=== PATIENT | female | born 1970 | race Two or more races ===

== ENCOUNTER 2023-02-23 09:59 | Emergency (ER) | payer OTHER ==
[~2023-02-23] VITALS: Ht 167.6 cm; Wt 107.7 kg
[2023-02-23 11:02] LABS: Basophils # (auto) 0 10 ^3/uL (0-0.2); Basophils % (auto) 0.5 % (0.0-2.0); Eosinophils # (auto) 0 10 ^3/uL (0-0.8); Eosinophils % (auto) 1.1 % (0.0-7.0); Hematocrit 41.1 % (36.0-46.0); Lymphocytes # (auto) 1.5 10 ^3/uL (0.4-5.4); Lymphocytes % (auto) 32.7 % (10.0-50.0); Mean Corpuscular Hemoglobin 32.2 pg (28.0-32.0); Mean Corpuscular Volume 94.7 fL (80.0-100.0); Monocytes # (auto) 0.5 10 ^3/uL (0-1.3); Neutrophils # (auto) 2.5 10 ^3/uL (1.6-8.6); Neutrophils % (auto) 55.7 % (37.0-80.0); Nucleated Red Blood Cells % 0.2 %; Red Blood Cells 4.34 10^6/uL (4.0-5.20); Red Cell Distribution Width 12.7 % (11.8-14.3); White Blood Cell 4.5 10^3/uL (4.4-10.8)
[2023-02-23 11:04] LABS: Albumin 3.8 g/dL (3.4-5.0); Calcium 8.9 mg/dL (8.5-10.1); Magnesium 2.1 mg/dL (1.6-2.6); Potassium 3.5 mmol/L (3.5-5.1)
[2023-02-23 11:08] LABS: BUN/Creatinine Ratio 9.5 (10.0-20.0); Bilirubin, Total 0.6 mg/dL (0.2-1.0); Total Protein 7.1 g/dL (6.4-8.2)
[2023-02-23 12:30] LABS: Urine Bacteria NONE SEEN /hpf (None Seen); Urine Blood Negative /uL (Negative); Urine Mucus MANY (None Seen); Urine WBC 2 /hpf (0 - 5)
[2023-02-23] MEDS ORDERED: PRED20TA2 PO (15:03)
[2023-02-23] MEDS ORDERED: AZIT-81 PO (15:03)
[2023-02-23 15:49] VITALS: BP 118/79
== END 2023-02-23 15:54 | disposition home or self-care (01) ==
LOC: ER 09:59
DX: K52.9 Noninfective gastroenteritis and colitis, unspecified (principal); Z88.1 Allergy status to other antibiotic agents; Z88.0 Allergy status to penicillin; Z88.8 Allergy status to other drugs, medicaments and biological substances
CPT/HCPCS: 36415; 74176; 80053; 81001; 82150; 83690; 83735; 84484; 85025; 85048; 87045; 87177; 87427; 87493; 93005

== ENCOUNTER 2024-07-20 10:03 | Emergency (ER) | payer OTHER ==
[~2024-07-20] VITALS: Ht 165.1 cm; Wt 66.1 kg
[~2024-07-20 10:03] MED LIST: AZIT-185 PO; PRED20TA2 PO
[2024-07-20 10:52] VITALS: PULSE 75; RESP 16; O2SAT 98
[2024-07-20] MEDS: IBUPROFEN 600 MG TAB PO ONE (11:00)
[2024-07-20 13:20] VITALS: BP 140/87; PULSE 74; RESP 18; O2SAT 95
== END 2024-07-20 13:24 | disposition home or self-care (01) ==
LOC: ER 10:03
DX: S16.1XXA Strain of muscle, fascia and tendon at neck level, initial encounter (principal); S20.219A Contusion of unspecified front wall of thorax, initial encounter; Z90.710 Acquired absence of both cervix and uterus; Z88.0 Allergy status to penicillin; Z88.1 Allergy status to other antibiotic agents; Z88.2 Allergy status to sulfonamides; Y04.8XXA Assault by other bodily force, initial encounter; Y93.89 Activity, other specified; Y92.89 Other specified places as the place of occurrence of the external cause; Y99.8 Other external cause status
CPT/HCPCS: 70450; 71046; 72040

== ENCOUNTER 2025-03-15 17:25 | Emergency (ER) | payer OTHER ==
[~2025-03-15] VITALS: Ht 167.6 cm; Wt 98.0 kg
[2025-03-15 17:33] VITALS: TEMP 98
--- NOTE | 2025-03-15 17:40 | ED.PDOC ---
History of Present Illness HPI Comments 54-year-old female presents with a chief complaint of abdominal pain and headache s/p falling off horse. Patient states that her pain is localized to her LLQ, nonradiating, describes as aching, and rates her pain a 8/10. Patient was riding a horse and she fell off it and hit her head on the concrete. Patient mentions that the horse stepped onto her abdomen region. There is no bruising to the abdomen. No scalp abrasions from the impact. Chief Complaint: Fall Injury Time Seen by MD: 17:32 Primary Care Provider: JOSE DAVID Boland Notes: Medications, Allergies Allergies: Coded Allergies: Ciprofloxacin (Verified Allergy, Unknown, 02/23/23) Metronidazole (Verified Allergy, Unknown, 02/23/23) Penicillins (Verified Allergy, Unknown, 02/23/23) Sulfamethoxazole w/Trimethoprim (Verified Allergy, Unknown, 02/23/23) Home Meds Active Scripts Prednisone (Prednisone) 20 Mg Tab, 40 MG PO DAILY for 6 Days, #12 MG Prov:LIZANDRO THOMASON MD 02/23/23 Azithromycin (ZITHROMAX TABLET) 250 Mg Tb, 500 MG PO DAILY for 3 Days, #6 TAB Prov:LIZANDRO THOMASON MD 02/23/23 Information Source: Patient Mode of Arrival: Ambulatory Severity: Moderate Timing: Hours Duration: Since onset Prehospital treatment: None Past Medical History PAST MEDICAL HISTORY: Denies Surgical History: Hysterectomy ADVERTISING ANALYST History: Denies all ADVERTISING ANALYST Hx Family History Family History: Unknown Social History Smoker: Non-Smoker Alcohol: Occasionally Drugs: Denies Drug Use Lives In: Home Constitutional: denies: chills, diaphoresis, fatigue, fever, malaise, sweats, weakness, others EENTM: denies: blurred vision, double vision, ear bleeding, ear discharge, ear drainage, ear pain, ear ringing, eye pain, eye redness, hearing loss, mouth pain, mouth swelling, nasal discharge, nose bleeding, nose congestion, nose pain, photophobia, tearing, throat pain, throat swelling, voice changes, others Respiratory: denies: cough, hemoptysis, orthopnea, SOB at rest, shortness of breath, SOB with excertion, stridor, wheezing, others Cardiovascular: denies: chest pain, dizzy spells, diaphoresis, Dyspnea on exertion, edema, irregular heart beat, left arm pain, lightheadedness, palpitations, PND, syncope, others Gastrointestinal: reports: abdominal pain; denies: abdomen distended, blood streaked bowels, constipated, diarrhea, dysphagia, difficulty swallowing, hematemesis, melena, nausea, poor appetite, poor fluid intake, rectal bleeding, rectal pain, vomiting, others Genitourinary: denies: abnormal vagina bleeding, burning, dyspareunia, dysuria, flank pain, frequency, hematuria, incontinence, pain, , vagina discharge, urgency, others Neurological: reports: headache; denies: dizziness, fainting, left sided numbness, left sided weakness, numbness, paresthesia, pre-existing deficit, right sided numbness, right sided weakness, seizure, speech problems, tingling, tremors, weakness, others Musculoskeletal: denies: back pain, gout, joint pain, joint swelling, muscle pain, muscle stiffness, neck pain, others Integumetry: denies: bruises, change in color, change in hair/nails, dryness, laceration, lesions, lumps, rash, wounds, others Allergic/Immunocompromised: denies: Difficulty Healing, Frequent Infections, Hives, Itching, others Hematologic/Lymphatic: denies: anemia, blood clots, easy bleeding, easy bruising, swollen glands, others Endocrine: denies: excessive hunger, excessive sweating, excessive thirst, excessive urination, flushing, intolerance to cold, intolerance to heat, unexplained weight gain, unexplained weight loss, others Psychiatric: denies: anxiety, bipolar disorder, depression, hopeless, panic disorder, schizophrenia, sleepless, suicidal, others All Other Systems: Reviewed and Negative Physical Exam General Appearance: No Apparent Distress, Normal HEENT: Normal ENT Inspection, Pharynx Normal, TMs Normal Neck: Full Range of Motion, Non-Tender, Normal, Normal Inspection Respiratory: Chest Non-Tender, Lungs Clear, No Accessory Muscle Use, No Respiratory Distress, Normal Breath Sounds Cardiovascular: No Edema, No JVD, No Murmur, No Gallop, Normal Peripheral Pulses, Regular Rate/Rhythm Breast Exam: Deferred Gastrointestinal: No Organomegaly, Non Tender, No Pulsatile Mass, Normal Bowel Sounds, Soft, Other (no rashes, hoof imprints, tenderness) Genitalia: Deferred Pelvic: Deferred Rectal: Deferred Extremities: No calf tenderness, Normal capillary refill, Normal inspection, Normal range of motion, No pedal edema, Tender (BILATERAL ELBOWS, NO EFFUSION, NO DEFORMITIES) Musculoskeletal : Apperance: Normal Neurologic: Alert, shipping helper II-XII nml as Tested, No Motor Deficits, Normal Affect, Normal Mood, No Sensory Deficits Cerebellar Function: Normal Reflexes: Normal Skin: Dry, Normal Color, Warm Lymphatic: No Adenopathy Was a procedure done? Was a procedure done?: No Differential Dx Considerations may include: hallow viscus injury, solid organ injuries, vascular injuries, closed head injury, scalp contusion, skull fracture, intracranial bleed. fractures of extremities, ribs, ptx, pulm contusion, chest wall pain X-Ray, Labs, Meds, VS Vital Signs Date Time Temp Pulse Resp B/P (MAP) Pulse Ox O2 Delivery O2 Flow Rate FiO2 03/15/25 17:33 98.0 95 17 143/61 (88) 97 98.0 Lab Test 03/15/25 17:45 Range/Units White Blood Count 8.1 4.4-10.8 10^3/uL Red Blood Count 4.57 4.0-5.20 10^6/uL Hemoglobin 14.3 12.2-16.2 g/dL Hematocrit 41.5 36.0-46.0 % Mean Corpuscular Volume 90.9 80.0-100.0 fL Mean Corpuscular Hemoglobin 31.2 28.0-32.0 pg Mean Corpuscular Hemoglobin Concent 34.3 32.0-36.0 g/dL Red Cell Distribution Width 13.0 11.8-14.3 % Platelet Count 237 140-450 10^3/uL Mean Platelet Volume 7.6 6.9-10.8 fL Neutrophils (%) (Auto) 68.7 37.0-80.0 % Lymphocytes (%) (Auto) 22.5 10.0-50.0 % Monocytes (%) (Auto) 7.2 0.0-12.0 % Eosinophils (%) (Auto) 0.8 0.0-7.0 % Basophils (%) (Auto) 0.8 0.0-2.0 % Neutrophils # (Auto) 5.5 1.6-8.6 10 ^3/uL Lymphocytes # (Auto) 1.8 0.4-5.4 10 ^3/uL Monocytes # (Auto) 0.6 0-1.3 10 ^3/uL Eosinophils # (Auto) 0.1 0-0.8 10 ^3/uL Basophils # (Auto) 0.1 0-0.2 10 ^3/uL Nucleated Red Blood Cells 0.0 % Sodium Level 142 136-145 mmol/L Potassium Level 3.6 3.5-5.1 mmol/L Chloride Level 107 98-107 mmol/L Carbon Dioxide Level 23 20-31 mmol/L Anion Gap 12 5-15 Blood Urea Nitrogen 9 9-23 mg/dL Creatinine 0.81 0.550-1.02 mg/dL Glomerular Filtration Rate Calc 86 >90 mL/min BUN/Creatinine Ratio 11.1 10.0-20.0 Serum Glucose 142 H 74-106 mg/dL Calcium Level 9.0 8.7-10.4 mg/dL Time of 1ST Reevaluation: 18:02 Reevaluation 1ST: Unchanged Time of 2ND Reevaluation: 19:08 Reevaluation 2ND: Improved Patient Education/Counseling: Diagnosis, Treatment, Prognosis, Need For Follow Up Family Education/Counseling: No Family Present Comments pt appears atraumatic. exam is unremarkable. however, pt is reporting that her head hit the concrete and she blacked out, her abdomen was trampled by her horse, and later added that her chest and elbows hurt. xrays and CTs are unremarkable, other than the ct abdomen/pelvis has nonspecific suggestions of colitis, enteritis, but atraumatic. she remains very comfortably, ambulating, and without needing medications. she is stable for discharge SEPSIS Sepsis Screen Date sepsis recognized/suspect: Mar 15, 2025 Time Sepsis recognized/suspect: 1726 Recent Procedure: No On Antibiotic Therapy: No Respiratory Rate >20: No Heart Rate >90: No Temp<36 C (96.8 F) or >38.3 C: No SBP <90 or MAP <65 mmHG: No New Acute Mental Status Change: No Is the patient on CPAP, BIPAP,: No Physician Orders Head Without Contrast (03/15/25 17:36) Ct Ab Pel With Iv Con Only (03/15/25 17:36) L Knee 2v Xray (03/15/25 17:36) L Elbow 2 View Xray (03/15/25 17:48) R Elbow 2v Xray (03/15/25 17:48) Saline Lock (03/15/25 17:59) Chest Two Views Routine (03/15/25 18:07) Vital Signs Date Time Temp Pulse Resp B/P (MAP) Pulse Ox O2 Delivery O2 Flow Rate FiO2 03/15/25 17:33 98.0 95 17 143/61 (88) 97 98.0 Laboratory Tests Test 03/15/25 17:45 White Blood Count 8.1 10^3/uL (4.4-10.8) Departure 1 Departure Time of Disposition: 19:09 Impression: Primary Impression: Falling Additional Impression: Injury while horseback riding Disposition: 01 HOME / SELF CARE / HOMELESS Condition: Good Discharged With: Self Critical Care Note Critical Care Time?: Yes (45 min-critical care time only) Critical care comment: Due to concerns for patients condition deteriorating, the care required my highest level of attention and readiness to intervene. I assessed the patient, reviewed the medical records, ordered the appropriate tests and treatments, then reassessed for results and responsiveness. I communicated with medical personnel and consultants and formulated a plan of care. Total critical care time excludes any procedures Stability Stability form required: No I personally scribed for JAYME SIWFT MD ([email or web address]) on 03/15/25 at 17:40. Electronically submitted by Robert Ivey ([email or web address]). I personally scribed for JAYME SWIFT MD ([email or web address]) on 03/15/25 at 17:49. Electronically submitted by Robert Ivey ([email or web address]). JAYME SWIFT MD Mar 15, 2025 17:40
[2025-03-15 18:03] LABS: Basophils # (auto) 0.1 10 ^3/uL (0-0.2); Basophils % (auto) 0.8 % (0.0-2.0); Eosinophils # (auto) 0.1 10 ^3/uL (0-0.8); Eosinophils % (auto) 0.8 % (0.0-7.0); Hematocrit 41.5 % (36.0-46.0); Hemoglobin 14.3 g/dL (12.2-16.2); Lymphocytes # (auto) 1.8 10 ^3/uL (0.4-5.4); Lymphocytes % (auto) 22.5 % (10.0-50.0); Mean Corpuscular Hemoglobin 31.2 pg (28.0-32.0); Mean Corpuscular Hgb Conc. 34.3 g/dL (32.0-36.0); Mean Corpuscular Volume 90.9 fL (80.0-100.0); Monocytes # (auto) 0.6 10 ^3/uL (0-1.3); Monocytes % (auto) 7.2 % (0.0-12.0); Neutrophils # (auto) 5.5 10 ^3/uL (1.6-8.6); Neutrophils % (auto) 68.7 % (37.0-80.0); Platelet Count (auto) 237 10^3/uL (140-450); Red Blood Cells 4.57 10^6/uL (4.0-5.20); White Blood Cell 8.1 10^3/uL (4.4-10.8)
[2025-03-15 18:10] LABS: Potassium 3.6 mmol/L (3.5-5.1); Sodium 142 mmol/L (136-145)
[2025-03-15 18:11] LABS: Anion Gap 12 (5-15); Carbon Dioxide 23 mmol/L (20-31)
[2025-03-15 18:13] LABS: Chloride 107 mmol/L (98-107)
[2025-03-15 18:16] LABS: BUN/Creatinine Ratio 11.1 (10.0-20.0); Blood Urea Nitrogen 9 mg/dL (9-23)
[2025-03-15 18:21] LABS: Glucose 142 mg/dL (74-106)
--- NOTE | 2025-03-15 18:24 | DVH ---
CLINICAL INDICATION: fell off horse TECHNIQUE: 2 radiographic views of the left knee were obtained. Comparison: None FINDINGS/IMPRESSION: There is no evidence of acute fracture or dislocation. The visualized joint space is well maintained. The alignment is anatomical. There is no radiopaque foreign body.
--- NOTE | 2025-03-15 18:31 | DVH ---
CLINICAL INDICATION: injury TECHNIQUE: 2 radiographic views of the right elbow were obtained. Comparison: None FINDINGS/IMPRESSION: There is no evidence of acute fracture or dislocation. The visualized joint space is well maintained. The alignment is anatomical. There is no radiopaque foreign body.
--- NOTE | 2025-03-15 18:47 | DVH ---
EXAM: CT HEAD WITHOUT CONTRAST INDICATION: fell off horse, loc TECHNIQUE: CT of the head without intravenous contrast. Radiation Dose Information: CT Dose: CTDI volume is 53.99 mGy. Dose-length product is 863.9 mGy*cm The dose indicators for CT are the volume Computed Tomography (CT) Dose Index (CTDIvol) and the Dose Length Product (DLP), and are measured in units of mGy and mGy-cm, respectively. These indicators are not patient dose, but values generated from the CT scanner acquisition factors. The report includes radiation exposure data for exposures received during this examination. COMPARISON: CT HEAD WITHOUT CONTRAST on DOS: 07/20/24 FINDINGS: There is no evidence of acute intracranial hemorrhage, extra-axial collection, mass effect, midline s hift, herniation or hydrocephalus. The ventricles, sulci and cisterns are age appropriate. The roberson-white differentiation is intact. Patchy periventricular and subcortical white matter hypoattenuation is nonspecific but may be related to small vessel ischemic disease. The visualized paranasal sinuses and mastoid air cells are clear. The surrounding soft tissues and osseous structures are unremarkable. IMPRESSION: 1. No acute intracranial hemorrhage 2. No CT findings of territorial ischemia. 3. No CT findings of displaced skull fracture.
--- NOTE | 2025-03-15 18:52 | DVH ---
EXAMINATIONS: Chest x-ray 2 views CLINICAL HISTORY: FELL FROM HORSE COMPARISON: XY CHEST TWO VIEWS ROUTINE on DOS: 07/20/24 FINDINGS: No dominant consolidations. The costophrenic angles appear clear. No sizable pleural effusion or pne umothorax. The cardiomediastinal silhouette appears within normal limits. IMPRESSION: No acute cardiopulmonary findings. If there is persistent concern for injury, CT may be considered to further evaluate.
--- NOTE | 2025-03-15 18:53 | DVH ---
EXAMINATIONS: 2 views of the left elbow CLINICAL HISTORY: injury COMPARISON: None Findings and impression: No grossly displaced fractures, dislocations or bony destructive changes are evident on the provided views. No definite joint effusion. If the patient has continued symptoms clinically suspicious for radiographically occult fracture, fol low-up radiographs could be obtained in 7-10 days time.
--- NOTE | 2025-03-15 19:18 | DVH ---
Exam: CT CT AB PEL WITH IV CON ONLY History: stepped on by horse Comparison Study: None TECHNIQUE: Multidetector CT of the abdomen and pelvis with IV contrast. Axial, coronal and sagittal m ultiplanar reformats were obtained from the axial data set by the technologist. Radiation Dose Information: CT Dose: CTDI volume is 10.65 mGy. Dose-length product is 499.31 mGy*cm FINDINGS: The lung bases are clear. Partially visualized heart is unremarkable. 1 cm right hepatic lobe cyst with additional subcentimeter hypodense hepatic lesion that is too small to characterize. Otherwise, liver, spleen, pancreas and adrenal glands unremarkable. The gallbladder is decompressed. Mild bilateral renal pelviectasis. Otherwise, kidneys, ureters and urinary bladder unremarkable. Kathrine caitlin appears truncated. Question partial hysterectomy. Focus of Calcification over the left side of th e uterus which may represent a calcified fibroid. Mild gastric wall thickening which may be due to inadequate distention. Mild wall thickening of proxi mal small bowel loops. The remainder of the small bowel loops are unremarkable. Appendix is unremarka ble. Wall thickening of the ascending and transverse colons. Small to moderate amount of fecal material wi thin the colon. No evidence of intraperitoneal free air or free fluid. No evidence of aortic aneurysm or dissection. Mild atherosclerotic calcification of the aorta. No significant lymphadenopathy. Tiny fat containing umbilical hernia. No destructive osseous lesions noted. Lytic lesion over the lef t iliac bone ; unchanged from prior imaging of 2022. Sclerotic focus of the right femoral head ; unch anged from imaging of 2022. No acute osseous abnormalities. Chronic deformity of the right proximal femur with dysplastic appearance of the right acetabulum. IMPRESSION: Mild wall Thickening of proximal small bowel loops. Correlate for enteritis. Mild colitis involving the ascending and transverse colons. Correlate for Possible chronic inflammato ry bowel disease. Hepatic cysts with additional subcentimeter hypodense hepatic lesion that is too small to characteriz e.
[2025-03-15] MEDS: IOHEXOL 300 MG/ML 100ML BOTTLE IJ ONE (20:24)
[2025-03-15] MEDS: SODIUM CHLORIDE 0.9% 1,000 ML IV ONE (20:24)
[2025-03-15 20:26] VITALS: PULSE 79; RESP 20; O2SAT 98
[2025-03-15 20:27] VITALS: BP 130/79; PULSE 87; RESP 19; O2SAT 98
== END 2025-03-15 20:33 | disposition home or self-care (01) ==
LOC: ER 17:25
DX: S09.8XXA Other specified injuries of head, initial encounter (principal); F10.90 Alcohol use, unspecified, uncomplicated; Z90.710 Acquired absence of both cervix and uterus; Z88.2 Allergy status to sulfonamides; Z88.0 Allergy status to penicillin; Z88.1 Allergy status to other antibiotic agents; Z79.52 Long term (current) use of systemic steroids; Z79.899 Other long term (current) drug therapy; V80.010A Animal-rider injured by fall from or being thrown from horse in noncollision accident, initial encounter; Y93.52 Activity, horseback riding; Y92.89 Other specified places as the place of occurrence of the external cause; Y99.8 Other external cause status; Y90.9 Presence of alcohol in blood, level not specified
CPT/HCPCS: 36415; 70450; 71046; 73070; 73560; 74177; 80048; 85025; 99285; Q9967

== ENCOUNTER 2025-07-14 20:45 | Emergency (ER) | payer OTHER ==
[~2025-07-14] VITALS: Ht 167.6 cm; Wt 69.4 kg
[2025-07-14 20:47] VITALS: BP 157/116; PULSE 72; RESP 20; TEMP 98.1; O2SAT 98
== END 2025-07-14 22:05 | disposition left against medical advice (07) ==
LOC: ER 20:45
DX: R06.02 Shortness of breath (principal); R00.2 Palpitations; Z79.899 Other long term (current) drug therapy